=== PATIENT | male | born 1985 | race Hispanic/Latino ===

== ENCOUNTER 2018-06-07 10:33 | Inpatient (IN) | payer OTHER ==
[~2018-06-07] VITALS: Ht 188 cm; Wt 144.9 kg
[2018-06-07] MEDS ORDERED: PIPERACILLIN/TAZO 4.5 GM 100 ML IV ONE ×2 (11:15→16:30)
[2018-06-07] MEDS ORDERED: VANCOMYCIN 1GM/NS 250 ML 250 ML IV ONE ×2 (11:15→16:30)
[2018-06-07 12:07] LABS: BASOPHILS # (AUTO) 0.1 (0.0-0.1); BASOPHILS % 0.6 % (0.0-1.0); EOSINOPHILS # (AUTO) 0.1 (0.0-0.4); EOSINOPHILS % 0.7 % (0.0-6.0); HEMATOCRIT 44.3 % (38.2-49.6); HEMOGLOBIN 14.8 g/dL (14.0-18.0); LYMPHOCYTES # (AUTO) 2.2 (1.0-3.2); MEAN CORPUSCULAR HEMOGLOBIN 27.4 pg (28-32); MEAN CORPUSCULAR HGB CONC 33.4 g/dL (31-35); MONOCYTES # (AUTO) 1.2 (0.2-0.8); MONOCYTES % 8.7 % (4.4-11.3); NEUTROPHILS # (AUTO) 10.2 (2.1-6.9); NEUTROPHILS % 72.6 % (38.7-80.0); PLATELET COUNT 300 x10e3/uL (140-360); RED CELL DISTRIBUTION WIDTH 13.8 % (11.7-14.4)
[2018-06-07 12:13] LABS: INR 1.08; PROTHROMBIN TIME 13.2 seconds (11.9-14.5)
[2018-06-07 12:14] LABS: PARTIAL THROMBOPLASTIN TIME 27.5 seconds (23.8-35.5)
[2018-06-07 12:23] LABS: ALANINE AMINOTRANSFERASE 41 IU/L (0-55); ALBUMIN 2.8 g/dL (3.5-5.0); ALBUMIN/GLOBULIN RATIO 0.4 (0.8-2.0); ALKALINE PHOSPHATASE 127 IU/L (40-150); BLOOD UREA NITROGEN 18 mg/dL (7-26); BUN/CREATININE RATIO 14 (6-25); CALCIUM 10.7 mg/dL (8.4-10.2); CARBON DIOXIDE 23 mmol/L (22-29); CHLORIDE 96 mmol/L (98-107); CREATININE, SERUM 1.31 mg/dL (0.72-1.25); EST GLOMERULAR FILTRATION RATE > 60 ML/MIN (60-); GLUCOSE 373 mg/dL (74-118); SODIUM 132 mmol/L (136-145)
[2018-06-07] MEDS ORDERED: ONDANSETRON HCL INJ 2 MG/ML VIAL IV ONE (13:52)
[2018-06-07] MEDS ORDERED: DESFLURANE 240 ML BTL INH ONE (13:52)
[2018-06-07] MEDS ORDERED: PROPOFOL IV EMULSION 10 MG/ML 20 ML VIAL IV ONE (13:52)
[2018-06-07] MEDS ORDERED: LIDOCAINE HCL 2% LOCAL INJ 5 ML SDV VIAL INJ ONE (13:52)
[2018-06-07] MEDS ORDERED: SODIUM CHLORIDE 0.9% 1000ML 1,000 ML IV SCH (14:00)
--- NOTE | 2018-06-07 14:29 | Diagnostic Imaging Report ---
PROCEDURE:CT PELVIS WITH CONTRAST COMPARISON:None. INDICATIONS:ABSCESS IN PELVIC AREA TECHNIQUE:Multidetector imaging of the pelvis was performed from the lower abdomen to below the pubic symphysis was performed after administration of IV contrast (Omnipaque-300). Coronal and sagittal multiplanar reformations were obtained. FINDINGS: Abdomen: The partially visualized liver and kidneys, small and large bowel appear unremarkable. The partially visualized IVC and aorta are unremarkable. No evidence of adenopathy or free fluid. Pelvis: The bladder and pelvic structures are normal in appearance. Bones and soft tissues: No acute bony findings. In the midline/right anterior soft tissues of the pelvis, there is a subcutaneous fluid collection which measures up to 9.5 x 4.2 x 7.9 cm (TV x AP x SI). The collection is ill defined superiorly and there is adjacent subcutaneous edema and fat stranding. Degenerative disc changes of the lower lumbar spine. CONCLUSION: Subcutaneous fluid collection measuring up to 9.5 cm in the midline/right anterior soft tissues of the pelvis with surrounding inflammatory changes. Findings are consistent with reported clinical history of abscess. No evidence of intrapelvic abscess. Dictated by: SYBIL DOE M.D. on 06/07/2018 at 14:34 Electronically approved by: SYBIL DOE M.D. on 06/07/2018 at 14:34
[2018-06-07] MEDS ORDERED: FENTANYL CITRATE/PF 100MCG/2 ML INJ ONE ×2 (14:50→21:29)
[2018-06-07] MEDS ORDERED: MIDAZOLAM HCL 2 MG/2 ML VIAL ONE (14:50)
[2018-06-07] MEDS ORDERED: IOPAMIDOL 370 MG/ML 200 ML INFUS..BTL INJ ONE (14:55)
[2018-06-07] MEDS ORDERED: SODIUM CHLORIDE 0.9% 50ML 50 ML ONE (14:55)
[2018-06-07] MEDS ORDERED: ACETAMINOPHEN 325 MG TAB PO PRN (16:45)
[2018-06-07] MEDS ORDERED: ONDANSETRON HCL INJ 2 MG/ML VIAL IV PRN (16:45)
[2018-06-07] MEDS ORDERED: DEXTROSE 50% SYRINGE 50 ML IV PRN (16:45)
[2018-06-07] MEDS ORDERED: MORPHINE SULFATE 2 MG/ML SYR IV PRN (16:45)
[2018-06-07] MEDS ORDERED: MORPHINE SULFATE INJ 4 MG/ML INJ IV PRN (17:00)
[2018-06-07] MEDS: INSULIN REGULAR, HUMAN 100 UNIT/1 ML 3ML VIAL SQ SCH (18:07)
[2018-06-07] MEDS ORDERED: BACITRACIN 50,000 UNIT VIAL ONE (20:15)
--- NOTE | 2018-06-07 20:25 | Consultation ---
DATE OF CONSULTATION: June 07, 2018 CHIEF COMPLAINT: Pubic abscess. HISTORY OF PRESENT ILLNESS: The patient is a 33-year-old male with a 2-week history of progressive swelling and pain in the pubic region. Patient has noted worsening in the last few days with fever and chills and some drainage from the wound. PAST MEDICAL HISTORY: Positive for diabetes. SURGICAL HISTORY: Unremarkable. ALLERGIES: HE HAS NO DRUG ALLERGIES. SOCIAL HABITS: No smoking or alcohol abuse. REVIEW OF SYSTEMS: No chest pain or shortness of breath. PHYSICAL EXAMINATION: VITAL SIGNS: Stable. He is afebrile. GENERAL: He is awake, alert, in moderate discomfort. HEENT: Sclerae are anicteric. NECK: Supple. LUNGS: Clear. HEART: Regular rate and rhythm. ABDOMEN: Soft. PUBIC REGION: There are swelling, redness and tenderness with drainage of serosanguineous fluid. EXTREMITIES: Without cyanosis or edema. LABS: White cell count is 14, hemoglobin of 14, creatinine is 1.3. Liver function test unremarkable. CT of the pelvis revealing a large 9 x 8 cm abscess in the pubic region. ASSESSMENT: Pubic abscess in patient who is diabetic. PLAN: Incision and drainage under anesthesia. Attendant risks discussed with the patient in detail. Job#: [id number]
[2018-06-07] MEDS ORDERED: BUPIVACAINE 0.5%/EPI 30 ML SDV INJ ONE (20:48)
[2018-06-07] MEDS ORDERED: MORPHINE SULFATE 2 MG/ML SYR ONE (22:25)
[2018-06-07 22:30] VITALS: BP 142/75
[2018-06-07] MEDS: SODIUM CHLORIDE 0.9% 1000ML 1,000 ML IV SCH (22:30)
--- NOTE | 2018-06-07 22:32 | History and Physical ---
NO DICTATION (:36) Job#: [id number] CQ
[2018-06-07] MEDS ORDERED: SODIUM CHLORIDE 0.9% 1000ML 1,000 ML ONE (22:54)
[2018-06-08] VITALS (7 sets, daily range): BP systolic 133–160; BP diastolic 67–93
--- NOTE | 2018-06-08 00:24 | Operative Report ---
DATE OF PROCEDURE: June 07, 2018 PREOPERATIVE DIAGNOSIS: Pubic abscess. POSTOPERATIVE DIAGNOSIS: Pubic abscess. OPERATIVE PROCEDURE: Incisional drainage of pubic abscess. ANESTHESIA: General. INDICATIONS: Xozukv[age]pyofg[age]-old male with 2-week history of progressive swelling and tenderness in the pubic area with CT scan of the pelvis showing a large 9 cm abscess in the pubic region. Patient had consented for debridement under anesthesia. Attendant risks discussed. DESCRIPTION: The patient brought to the OR intubated. Pubic area is prepped with Betadine and draped in sterile fashion. The necrotic skin and soft tissue were excised with Bovie and this deroofed the abscess cavity when the large amount of pus is evacuated by suctioning. We then used digital exploration to break up all loculations inside the abscess cavity. Irrigation then carried out with saline solution. The wound is then packed with iodoform packing gauze and hemostasis achieved. 4 x 4 dressing applied with pressure. The patient was then extubated and transported to recovery room. ESTIMATED BLOOD LOSS: 10 mL. Job#: [id number]
[2018-06-08 05:24] LABS: BASOPHILS # (AUTO) 0.1 (0.0-0.1); BASOPHILS % 0.7 % (0.0-1.0); EOSINOPHILS # (AUTO) 0.2 (0.0-0.4); EOSINOPHILS % 1.8 % (0.0-6.0); HEMATOCRIT 34.1 % (38.2-49.6); HEMOGLOBIN 11.6 g/dL (14.0-18.0); LYMPHOCYTES # (AUTO) 2.9 (1.0-3.2); LYMPHOCYTES % 24.5 % (18.0-39.1); MEAN CORPUSCULAR HEMOGLOBIN 27.9 pg (28-32); MONOCYTES % 8.2 % (4.4-11.3); NEUTROPHILS # (AUTO) 7.4 (2.1-6.9); NEUTROPHILS % 63.1 % (38.7-80.0); PLATELET COUNT 262 x10e3/uL (140-360); RED BLOOD COUNT 4.16 x10e6/uL (4.3-5.7); RED CELL DISTRIBUTION WIDTH 14.1 % (11.7-14.4)
[2018-06-08 05:55] LABS: ANION GAP 13.3 mmol/L (8-16); BLOOD UREA NITROGEN 16 mg/dL (7-26); BUN/CREATININE RATIO 19 (6-25); CALCIUM 8.8 mg/dL (8.4-10.2); CARBON DIOXIDE 21 mmol/L (22-29); CHLORIDE 104 mmol/L (98-107); CREATININE, SERUM 0.85 mg/dL (0.72-1.25); EST GLOMERULAR FILTRATION RATE > 60 ML/MIN (60-); GLUCOSE 191 mg/dL (74-118); POTASSIUM 4.3 mmol/L (3.5-5.1); SODIUM 134 mmol/L (136-145)
[2018-06-08] MEDS ORDERED: SODIUM CHLORIDE 0.9% 1000ML 1,000 ML ONE (06:15)
[2018-06-08] MEDS: SODIUM CHLORIDE 0.9% 1000ML 1,000 ML IV SCH ×2 (06:16→16:30)
[2018-06-08] MEDS: INSULIN REGULAR, HUMAN 100 UNIT/1 ML 3ML VIAL SQ SCH ×4 (07:30→21:00)
[2018-06-08] MEDS ORDERED: VANCOMYCIN 1GM/NS 250 ML 250 ML IV SCH (12:00)
[2018-06-08] MEDS ORDERED: PIPER-TAZ 3.375 GM 50 ML IV SCH (12:00)
[2018-06-08] MEDS: ACETAMINOPHEN 325 MG TAB PO PRN ×2 (12:20→19:02)
--- NOTE | 2018-06-08 14:40 | Consultation ---
DATE OF CONSULTATION: INFECTIOUS DISEASE CONSULTATION REASON FOR CONSULTATION: Pubic abscess, recommendation on antibiotic. HISTORY OF PRESENT ILLNESS: This is a 33-year-old gentleman who was seen on June 07 in the evening in the emergency room. The patient, who has history of obesity, denies any past medical history. He has been having abscess and redness and swelling over his pubic area. The patient has been with that for the last few days, getting progressively worse. Came to the emergency room. He was seen by me. He was seen by Dr. Liao, and they plan for him to undergo incision and drainage. PAST MEDICAL HISTORY: He was just diagnosed with diabetes. PAST SURGICAL HISTORY: Denies. ALLERGIES: NKA. SOCIAL HISTORY: There is no smoking, drug abuse, alcohol abuse. FAMILY HISTORY: Otherwise unremarkable. REVIEW OF SYSTEMS: HEENT: Negative. PULMONARY: Negative. CARDIAC: Negative. : Negative. SKIN: There is no other rash. JOINTS: Negative. PHYSICAL EXAMINATION: GENERAL: He is currently alert, oriented, does not seem to be in acute distress. VITALS: Stable. Currently afebrile. HEENT: Normocephalic. He does not appear icteric. NECK: Supple. No JVD. No lymphadenopathy. No thyromegaly. CHEST: Clear bilaterally. HEART: S1 and S2. No S3, no S4. No murmur. ABDOMEN: Soft. Bowel sounds present. No tenderness. He did have an abscess 9 x 5 cm suprapubic area. EXTREMITIES: No edema. SKIN: No rash. JOINTS: No erythema or edema. LABORATORY DATA: White count on admission was 13.97. Sodium 134, potassium 4.3, creatinine 0.85. His glucose was 203. IMPRESSION: 1. Abscess. Will put the patient on vancomycin and Zosyn. He is going for an I\T\D. Will send culture and sensitivity. Will obtain blood cultures. 2. Diabetes mellitus, newly diagnosed. Per Internal Medicine. Will follow with you. Thank you for asking me to see this patient. Job#: [id number] EV
[2018-06-08] MEDS ORDERED: INSULIN REGULAR, HUMAN 100 UNIT/1 ML 3ML VIAL SQ SCH (16:30)
[2018-06-08] MEDS ORDERED: ONDANSETRON HCL INJ 2 MG/ML VIAL IV PRN (16:30)
[2018-06-08] MEDS ORDERED: DEXTROSE 50% SYRINGE 50 ML IV PRN (16:45)
[2018-06-08] MEDS ORDERED: MORPHINE SULFATE INJ 4 MG/ML INJ IV PRN (16:45)
[2018-06-08] MEDS: PIPER-TAZ 3.375 GM 50 ML IV SCH (18:00)
[2018-06-09] VITALS (7 sets, daily range): BP systolic 142–149; BP diastolic 70–87
[2018-06-09] MEDS: SODIUM CHLORIDE 0.9% 1000ML 1,000 ML IV SCH ×4 (00:08→22:53)
[2018-06-09] MEDS: VANCOMYCIN 1GM/NS 250 ML 250 ML IV SCH ×2 (00:08→13:40)
[2018-06-09] MEDS: PIPER-TAZ 3.375 GM 50 ML IV SCH ×4 (00:08→17:33)
[2018-06-09] MEDS: INSULIN REGULAR, HUMAN 100 UNIT/1 ML 3ML VIAL SQ SCH ×4 (08:28→21:19)
--- NOTE | 2018-06-09 09:45 | Progress Note ---
DATE: June 09, 2018 Mr. Cervantes is a 33-year-old man who denies any prior medical history. On admission to the hospital, we found that his blood sugar was elevated. He came complaining of pubic erythema and tenderness in that area. He was found to have an abscess. He underwent incision and drainage with packing. He was started on IV antibiotics. PHYSICAL EXAMINATION GENERAL: Today, he is awake and alert. VITALS: Temperature is 97.1, blood pressure 149/81. HEART: Regular rate. LUNGS: Clear to auscultation. ABDOMEN: Soft. BLOOD WORK: Potassium 4.3, creatinine is 0.85, glucose is 191. White count is 11.6, hemoglobin 11.6, hematocrit 34.1. Hemoglobin A1c is 11.3. Wound cultures are still pending. Blood cultures so far negative. ASSESSMENT AND PLAN 1. Abscess of the pubic area: Status post incision and drainage. 2. New-onset diabetes. 3. Hypertension. PLAN: At the present time, continue wound care and IV antibiotics. Continue ADA diet. Sliding scale with insulin. We are going to start him on losartan, as well as metformin. All of this was discussed with the patient. All questions were answered to satisfaction. Job#: [id number] SAMIA
[2018-06-09] MEDS: LOSARTAN POTASSIUM 100 MG TAB PO SCH (10:51)
[2018-06-09] MEDS: METFORMIN HCL 500 MG TAB PO SCH (16:34)
[2018-06-10] VITALS: BP 141/79
[2018-06-10] MEDS: PIPER-TAZ 3.375 GM 50 ML IV SCH ×3 (00:08→11:56)
[2018-06-10] MEDS: VANCOMYCIN 1GM/NS 250 ML 250 ML IV SCH ×3 (01:00→23:50)
[2018-06-10 04:53] VITALS: BP 136/64
[2018-06-10 05:12] LABS: HEMATOCRIT 35.6 % (38.2-49.6); MEAN CORPUSCULAR HEMOGLOBIN 27.6 pg (28-32); MEAN CORPUSCULAR HGB CONC 33.7 g/dL (31-35); MEAN CORPUSCULAR VOLUME 81.8 fL (81-99); PLATELET COUNT 316 x10e3/uL (140-360); RED BLOOD COUNT 4.35 x10e6/uL (4.3-5.7); RED CELL DISTRIBUTION WIDTH 13.7 % (11.7-14.4)
[2018-06-10 07:34] LABS: EOSINOPHILS % (MANUAL) 3 % (0-7); LYMPHOCYTES % (MANUAL) 28 % (19-48); METAMYELOCYTES % (MANUAL) 1 % (0-0); MONOCYTES % (MANUAL) 4 % (3.4-9.0); MYELOCYTES % (MANUAL) 1 % (0-0); NEUTROPHILS % (MANUAL) 62 % (40-74)
[2018-06-10 07:35] LABS: ANISOCYTOSIS SLIGHT; PLATELET ESTIMATE ADEQUATE; PLATELET MORPHOLOGY COMMENT NORMAL; RBC MORPHOLOGY COMMENT NORMAL
[2018-06-10] MEDS: LOSARTAN POTASSIUM 100 MG TAB PO SCH (08:09)
[2018-06-10] MEDS: METFORMIN HCL 500 MG TAB PO SCH ×2 (08:09→16:26)
[2018-06-10] MEDS: INSULIN REGULAR, HUMAN 100 UNIT/1 ML 3ML VIAL SQ SCH ×4 (08:09→21:00)
[2018-06-10 09:22] VITALS: BP 148/70
--- NOTE | 2018-06-10 10:30 | Progress Note ---
DATE: June 10, 2018 Mr. Cervantes is a 33-year-old obese man who denies any prior medical history, who came to the emergency room with abscess in the pubic area and elevated blood sugar. He was started on wound care and IV antibiotics, ADA diet, and he is on sliding scale and metformin at the present. PHYSICAL EXAMINATION GENERAL: He is awake and alert. VITALS: Temperature is 96.6, blood pressure 136/64. HEART: Regular rate. LUNGS: Clear to auscultation. ABDOMEN: Soft. He still has . The abscess was drained. He still has some packing and he still has some drainage in that area. BLOOD WORK: Potassium is 4.3, creatinine 0.85, glucose 191. White count is 9.46, hemoglobin 12, hematocrit is 35.6. ASSESSMENT AND PLAN 1. Abscess in pubic area: Status post incision and drainage. 2. Abdominal wall cellulitis. 3. New-onset diabetes. 4. Hypertension. PLAN: At the present time, continue wound care, IV antibiotics, ADA diet. He was started on losartan and metformin. Continue treatment. Evaluate him tomorrow. If stable, he may go home. Job#: [id number] SAMIA
[2018-06-10] MEDS: SODIUM CHLORIDE 0.9% 1000ML 1,000 ML IV SCH ×3 (10:31→23:50)
[2018-06-10] MEDS: CEFEPIME HCL 1 GM VIAL IV SCH (14:33)
--- NOTE | 2018-06-10 18:51 | Diagnostic Imaging Report ---
PROCEDURE: A single AP view of the chest. COMPARISON: None. INDICATIONS: PICC LINE PLACEMENT FINDINGS: See impression. IMPRESSION: 1. Right-sided PICC line has distal tip projecting in the proximal to mid SVC. 2. Hypoinflated lungs. No consolidation or effusion. 3. Cardiac mediastinal silhouette is unremarkable. Sebastián Lomeli M.D. Dictated by: Sebastián Lomeli M.D. on 06/10/2018 at 18:56 Electronically approved by: Sebastián Lomeli M.D. on 06/10/2018 at 18:56
[2018-06-10 20:00] VITALS: BP 146/75
[2018-06-10 20:55] VITALS: BP 146/75
[2018-06-11] VITALS (7 sets, daily range): BP systolic 124–149; BP diastolic 63–98
[2018-06-11] MEDS: CEFEPIME HCL 1 GM VIAL IV SCH ×2 (01:00→13:11)
[2018-06-11 05:21] LABS: HEMATOCRIT 36.2 % (38.2-49.6); HEMOGLOBIN 12.4 g/dL (14.0-18.0); MEAN CORPUSCULAR HEMOGLOBIN 27.7 pg (28-32); MEAN CORPUSCULAR HGB CONC 34.3 g/dL (31-35); PLATELET COUNT 313 x10e3/uL (140-360); RED BLOOD COUNT 4.47 x10e6/uL (4.3-5.7); RED CELL DISTRIBUTION WIDTH 13.5 % (11.7-14.4)
[2018-06-11 05:50] LABS: ANION GAP 12.9 mmol/L (8-16); BLOOD UREA NITROGEN 8 mg/dL (7-26); BUN/CREATININE RATIO 11 (6-25); CARBON DIOXIDE 23 mmol/L (22-29); CHLORIDE 106 mmol/L (98-107); CREATININE, SERUM 0.76 mg/dL (0.72-1.25); EST GLOMERULAR FILTRATION RATE > 60 ML/MIN (60-); GLUCOSE 159 mg/dL (74-118); POTASSIUM 3.9 mmol/L (3.5-5.1); SODIUM 138 mmol/L (136-145)
[2018-06-11] MEDS: INSULIN REGULAR, HUMAN 100 UNIT/1 ML 3ML VIAL SQ SCH ×3 (07:30→16:30)
[2018-06-11] MEDS: METFORMIN HCL 500 MG TAB PO SCH ×2 (08:09→17:06)
[2018-06-11] MEDS: SODIUM CHLORIDE 0.9% 1000ML 1,000 ML IV SCH ×2 (08:34→17:06)
[2018-06-11] MEDS: LOSARTAN POTASSIUM 100 MG TAB PO SCH (09:02)
--- NOTE | 2018-06-11 10:12 | Discharge Summary ---
Mr. Cervantes is a 33-year-old man, obese, with no prior medical history. He came to the emergency room complaining of an abscess in the pubic area. He underwent incision and drainage and packing. He is on wound care and IV antibiotics. He was found to have elevated blood pressure and diabetes. He was started on losartan, ADA diet, metformin and Amaryl for his diabetes. The plan is to discharge him home today and have IV antibiotics set as per Dr. Sevilla. Follow up with Dr. Liao as directed by him and follow up with me in 1 week. On physical examination, he is awake and alert. Temperature is 97.9, blood pressure 131/87. The heart is regular rate. The lungs are clear to auscultation. Abdomen is soft. In the pubic area, he has an abscess that is open and packed and still draining. On the blood work, potassium is 3.9, creatinine 0.76, glucose 159, white count 9.28, hemoglobin 12.4. DISCHARGE DIAGNOSES 1. Abscess in pubic area, status post incision and drainage. 2. Abdominal wall cellulitis. 3. New onset diabetes. 4. Hypertension. PLAN: At the present time, the patient has a PICC line, so the plan is to discharge him home with IV antibiotics as per Dr. Sevilla. Continue ADA diet. We are going to have a mobile home servicer and we will instruct him on how to monitor his blood sugar. He is going to be on metformin 500 mg twice a day, Amaryl 2 mg daily, and losartan for blood pressure. He needs to follow up with me in 1 week. Continue IV antibiotics as per Dr. Sevilla and follow up on the abscess with Dr. Liao as directed by him. All of this was discussed with the patient, and all questions were answered to satisfaction. PRESTON LOPEZ MD Job#: [id number]
[2018-06-11] MEDS: VANCOMYCIN 1GM/NS 250 ML 250 ML IV SCH (12:00)
[2018-06-11] MEDS ORDERED: METFORMIN HCL500 MG PO (18:18)
[2018-06-11] MEDS ORDERED: AMARYL2 MG PO (18:19)
[2018-06-11] MEDS ORDERED: LOSARTAN POTASS25 MG PO (18:19)
[2018-06-11] MEDS ORDERED: VANCOMYCIN 1GM/NS 250 ML 250 ML IV SCH (19:00)
[2018-06-11] MEDS ORDERED: CEFEPIME HCL 1 GM VIAL IV SCH (19:00)
== END 2018-06-11 21:02 | disposition home or self-care (01) | DRG 570 ==
LOC: ER 10:33 → OR 16:40 → MED/SURG2 16:41 → UNDOADMIN 17:39 → ERHOLD 17:39 → OR 20:01 → MED/SURG2 23:15 → OR 23:15 → MED/SURG2 23:16 → OR 23:16
PROVIDERS: ADMIT Internal Medicine; ATTEND Internal Medicine
PROC: 02HV33Z Insertion of Infusion Device into Superior Vena Cava, Percutaneous Approach (ICD-10-PCS; 2018-06-07)
PROC: 0JBB0ZZ Excision of Perineum Subcutaneous Tissue and Fascia, Open Approach (ICD-10-PCS; principal; 2018-06-07 20:35)
DX: L02.818 Cutaneous abscess of other sites (principal); J85.2 Abscess of lung without pneumonia; Z68.41 Body mass index [BMI] 40.0-44.9, adult; E66.01 Morbid (severe) obesity due to excess calories; I10 Essential (primary) hypertension; E11.65 Type 2 diabetes mellitus with hyperglycemia
CPT/HCPCS: 36415; 36569; 71045; 72193; 80048; 80053; 80202; 82948; 83036; 83605; 85007; 85025; 85027; 85610; 85730; 87040; 87071; 87075; 87205; 99284; J0692; J2001; J2250; J2270; J2405; J2543; J3370; J7030; Q9967

== ENCOUNTER 2018-06-15 09:55 | Emergency (ER) | payer OTHER ==
[~2018-06-15] VITALS: Ht 188 cm; Wt 144.7 kg
--- NOTE | 2018-06-15 11:34 | Diagnostic Imaging Report ---
PROCEDURE:CXR [address] [facility] COMPARISON:None. INDICATIONS:VERIFY PICC LINE POSITION FINDINGS: Right sided PICC terminates in a midline position in the expected location of the right axillary/subclavian vein. The position is not central in location. No evidence of pneumothorax. The left costophrenic angle is excluded from the field of view. The visualized portions of the lungs are clear. The cardiomediastinal silhouette is unremarkable. CONCLUSION: Right sided PICC terminates in a midline position in the expected location of the right axillary/subclavian vein. The position is not central in location. No evidence of pneumothorax. Dictated by: SYBIL DOE M.D. on 06/15/2018 at 11:40 Electronically approved by: SYBIL DOE M.D. on 06/15/2018 at 11:40
== END 2018-06-15 12:09 | disposition home or self-care (01) ==
LOC: FSED 09:55
DX: Z45.2 Encounter for adjustment and management of vascular access device (principal); I10 Essential (primary) hypertension; E11.9 Type 2 diabetes mellitus without complications
CPT/HCPCS: 71045; 99283

== ENCOUNTER → 2018-06-15 | Outpatient (CLI) | payer OTHER ==
[~2018-06-15] MED LIST: AMARYL2 MG PO; LOSARTAN POTASS25 MG PO; METFORMIN HCL500 MG PO
--- NOTE | 2018-06-15 15:28 | Diagnostic Imaging Report ---
PROCEDURE: A single AP view of the chest. COMPARISON: Patients [facility], DX, CHEST XRAY LINE PLACEMENT, 06/10/2018, 18:36. INDICATIONS: PICC LINE PLACEMENT FINDINGS: See impression. IMPRESSION: 1. right-sided PICC line has distal tip projecting in the distal SVC. 2. Mildly hypoinflated lungs. No consolidation or effusion. Sebastián Lomeli M.D. Dictated by: Sebastián Lomeli M.D. on 06/15/2018 at 15:34 Electronically approved by: Sebastián Lomeli M.D. on 06/15/2018 at 15:34
== END ==
LOC: DX 12:59
PROVIDERS: ATTEND Internal Medicine Infectious Disease
DX: K65.1 Peritoneal abscess (principal)
CPT/HCPCS: 36569; 71045

== ENCOUNTER 2018-06-29 19:37 | Emergency (ER) | payer OTHER ==
[~2018-06-29] VITALS: Ht 188 cm; Wt 140.6 kg
== END 2018-06-29 21:50 | disposition home or self-care (01) ==
LOC: FSED 19:37
DX: Z45.2 Encounter for adjustment and management of vascular access device (principal); L02.91 Cutaneous abscess, unspecified; I10 Essential (primary) hypertension; E11.9 Type 2 diabetes mellitus without complications
CPT/HCPCS: 99283